=== PATIENT | female | born 1985 | race Caucasian/White ===

== ENCOUNTER → 2016-10-16 | Outpatient (CLI) | payer OTHER ==
[~2016-10-16] MED LIST: ACETAMINOPHEN-H1 TA2 PO; ALBUTEROL2 PUFFS/17 IN; DOXYCYCLINE HY100 MG PO; FIORICET 325 MG1 TAB PO; FIORICET1 CAP PO; OMNICEF 300 MG300 MG PO; PHENERGAN 25MG.25 M1 PO; PREDNISONE 20MG20 MG PO; PRENATAL PLUS1 TA1 PO; PRILOSEC20 M1 PO; RANITIDINE HCL150 MG PO; STERAPRED5 MG PO; TAMIFLU75 MG PO
--- NOTE | 2016-10-17 17:38 | RADIOLOGY REPORT PS360 ---
MRI-BRAIN W/WO ORDERING PHYSICIAN : Micha Desai MD PATIENT AGE: 31 years GENDER: Female INDICATION: FACIAL DROOP . Numbness hands and feet TECHNIQUE: : Precontrast Multiplanar FLAIR, T1, T2 weighted images along with axial diffusion/ADC imaging performed on 1.5 T. Siemens, MRI. Postcontrast imaging [id number] ProHance T1-weighted images axial & coronal plane performed COMPARISON: . Yesterday's CT head without as well as previous CT head 03/29/2007 FINDINGS Diffusion images reveal no acute infarct or ischemia. The remainder the brain appears within normal limits. No significant deep white matter lesions. No mass effect or mass lesion. No abnormal areas of enhancement Normal overall anatomy. Cranial cervical junction is normal. Sella unremarkable. Ventricles and basal cisterns normal. Appear to be some minimal vascular channels pass into corpus callosum on sagittal view.. No abnormal FLAIR signal here to suggest other conditions Also very Slightly Generous perivascular spaces seen throughout the deep white matter reflects merely normal variation in this younger patient. As I understand patient has no hypertension. The paranasal sinuses appear clear overall. Subtle barely evident mucosal thickening of a single anterior left ethmoid air cell not felt to be of significance.. ... Orbits unremarkable. The [place] of region appears satisfactory would note right internal carotid is slightly more generous than the left and gives rise to the right posterior communicating artery.. Merely Normal variation. Posterior fossa is unremarkable. Mastoid air cells IACs appear satisfactory. Scalp and skull satisfactory. . Report called tube Dr. Desai IMPRESSION: No significant findings. Brain within normal limits. No acute findings. No evidence of ischemia nor infarct. No mass lesions..
--- NOTE | 2016-10-17 17:38 | RADIOLOGY REPORT PS360 ---
MRI-BRAIN W/WO ORDERING PHYSICIAN : Micha Desai MD PATIENT AGE: 31 years GENDER: Female INDICATION: FACIAL DROOP . Numbness hands and feet TECHNIQUE: : Precontrast Multiplanar FLAIR, T1, T2 weighted images along with axial diffusion/ADC imaging performed on 1.5 T. Siemens, MRI. Postcontrast imaging [id number] ProHance T1-weighted images axial & coronal plane performed COMPARISON: . Yesterday's CT head without as well as previous CT head 03/29/2007 FINDINGS Diffusion images reveal no acute infarct or ischemia. The remainder the brain appears within normal limits. No significant deep white matter lesions. No mass effect or mass lesion. No abnormal areas of enhancement Normal overall anatomy. Cranial cervical junction is normal. Sella unremarkable. Ventricles and basal cisterns normal. Appear to be some minimal vascular channels pass into corpus callosum on sagittal view.. No abnormal FLAIR signal here to suggest other conditions Also very Slightly Generous perivascular spaces seen throughout the deep white matter reflects merely normal variation in this younger patient. As I understand patient has no hypertension. The paranasal sinuses appear clear overall. Subtle barely evident mucosal thickening of a single anterior left ethmoid air cell not felt to be of significance.. ... Orbits unremarkable. The [place] of region appears satisfactory would note right internal carotid is slightly more generous than the left and gives rise to the right posterior communicating artery.. Merely Normal variation. Posterior fossa is unremarkable. Mastoid air cells IACs appear satisfactory. Scalp and skull satisfactory. . Report called tube Dr. Desai IMPRESSION: No significant findings. Brain within normal limits. No acute findings. No evidence of ischemia nor infarct. No mass lesions..
== END ==
LOC: RAD 14:46
DX: R29.810 Facial weakness (principal)
CPT/HCPCS: A9576

== ENCOUNTER → 2016-10-17 | Outpatient (CLI) | payer OTHER ==
[2016-10-18 08:45] LABS: Vitamin B12 168 pg/mL (211-946)
[2016-10-18 14:40] LABS: Albumin 3.7 g/dL (2.9-4.4); Alpha-1-Globulin 0.2 g/dL (0.0-0.4); Alpha-2-Globulin 0.8 g/dL (0.4-1.0); Gamma Globulin 2.1 g/dL (0.4-1.8); Protein, Total 8.1 g/dL (6.0-8.5)
[2016-10-19 10:40] LABS: Antinuclear Antibodies, IFA Negative (.)
== END ==
LOC: LAB 11:05
PROVIDERS: Family Medicine
DX: G62.9 Polyneuropathy, unspecified (principal)